=== PATIENT | female | born 1965 ===

== ENCOUNTER 2025-09-10 14:00 | Emergency (ER) | payer MEDICAID | END 2025-09-10 15:15 | disposition home or self-care (01) | LOC: JP.ED 14:00 | DX: F11.23 Opioid dependence with withdrawal (principal); F17.200 Nicotine dependence, unspecified, uncomplicated; Z90.49 Acquired absence of other specified parts of digestive tract; Z90.710 Acquired absence of both cervix and uterus; Z88.8 Allergy status to other drugs, medicaments and biological substances; Z79.899 Other long term (current) drug therapy | CPT/HCPCS: 99284; A9270 ==